=== PATIENT | female | born 1955 | race Caucasian/White ===

== ENCOUNTER 2022-03-03 09:54 | Inpatient (IN) ==
[2022-03-03] MEDS ORDERED: 0.9 % Sodium Chloride 1,000 ML IVC ONE (10:30)
[2022-03-03 11:32] LABS: Hematocrit 35.9 % (35.3-44.9); Hemoglobin 10.6 g/dL (11.5-15.4); Mean Corpuscular HGB Conc 29.5 g/dL (31.6-35.5); Mean Corpuscular Hemoglobin 23.9 pg (28.0-33.3); Mean Platelet Volume 10.3 fL (9.4-12.4); Platelet Count 175 K/mcL (140-400); Red Blood Count 4.43 M/mcL (3.82-4.97); Red Cell Distribution Width 16.4 % (11.5-14.5); White Blood Count 4.5 K/mcL (4.3-11.1)
[2022-03-03 12:03] LABS: Albumin 4.1 g/dL (3.5-5.7); Albumin/Globulin Ratio 1.7 (1.1-2.2); Bilirubin,Direct 0.5 mg/dL (0.0-0.2); Bilirubin,Indirect 3.5 mg/dL (0.0-1.0); Calcium 9.2 mg/dL (8.6-10.3); Globulin 2.4 g/dL (2.4-3.5); Total Protein 6.5 g/dL (6.4-8.9)
[2022-03-03] MEDS ORDERED: 0.9 % Sodium Chloride 500 ML IVC ONE ×2 (12:18→15:16)
[2022-03-03] MEDS ORDERED: Potassium Chloride Elixir 20 MEQ/15 ML UDC PO ONE (12:20)
[2022-03-03] MEDS ORDERED: Ondansetron 4 MG/2 ML VIAL IVP PRN (13:53)
[2022-03-03] MEDS ORDERED: Acetaminophen 325 MG TABLET PO PRN (13:53)
[2022-03-03] MEDS ORDERED: Naloxone 0.4 MG/ML INJ IVP PRN (13:53)
[2022-03-03 15:41] LABS: Bacteria,Urine Many per hpf (None-Few); Bilirubin,Urine Negative (Negative); Blood,Urine Large (Negative); Clarity,Urine Turbid (Clear); Color,Urine Yellow (Yellow); Glucose,Urine (UA) Normal (Normal); Ketones,Urine Negative (Negative); Leukocyte Esterase,Urine Moderate (Negative); Mucus,Urine Many per lpf (None-Few); Nitrite,Urine Negative (Negative); PH,Urine 5.5 pH Units (5.0-8.0); Protein,Urine 50 mg/dL (Neg-Trace); RBC,Urine 30-50 per hpf (0-3); Specific Gravity,Urine 1.021 (1.010-1.025); Squamous Epithelial Cell,Urine Moderate per hpf (None-Few); Urobilinogen,Urine Normal (Normal); WBC,Urine 15-30 per hpf (0-3)
[2022-03-03] MEDS ORDERED: Nitroglycerin 0.4 MG TAB.SUBL SL PRN (16:09)
[2022-03-03] MEDS ORDERED: 0.9 % Sodium Chloride 250 ML IVC ONE (17:59)
[2022-03-03] MEDS: Apixaban 5 MG TABLET PO SCH (19:58)
[2022-03-04 01:17] LABS: Hematocrit 29.7 % (35.3-44.9)
[2022-03-04 01:19] LABS: Hemoglobin 8.5 g/dL (11.5-15.4); Mean Corpuscular HGB Conc 28.6 g/dL (31.6-35.5); Mean Corpuscular Hemoglobin 23.7 pg (28.0-33.3); Platelet Count 141 K/mcL (140-400); Red Blood Count 3.58 M/mcL (3.82-4.97); Red Cell Distribution Width 16.5 % (11.5-14.5); White Blood Count 3.7 K/mcL (4.3-11.1)
[2022-03-04 01:40] LABS: Calcium 8.1 mg/dL (8.6-10.3); Magnesium 1.9 mg/dL (1.6-2.6); Potassium 3.2 mEq/L (3.5-5.1)
[2022-03-04] MEDS ORDERED: *HR* Enoxaparin 30 MG/0.3 ML SYRINGE SQ SCH (07:00)
[2022-03-04] MEDS: 0.9 % Sodium Chloride 1,000 ML IVC SCH ×2 (07:43→18:13)
[2022-03-04] MEDS: Apixaban 5 MG TABLET PO SCH ×2 (07:44→20:57)
[2022-03-04 08:52] LABS: Albumin 3.4 g/dL (3.5-5.7); Bilirubin,Direct 0.4 mg/dL (0.0-0.2); Bilirubin,Indirect 2.5 mg/dL (0.0-1.0); Bilirubin,Total 2.9 mg/dL (0.3-1.0); Globulin 1.7 g/dL (2.4-3.5); Total Protein 5.1 g/dL (6.4-8.9)
[2022-03-04] MEDS: *HR* Amiodarone 200 MG TABLET PO SCH (10:35)
[2022-03-04] MEDS: Metoclopramide 10 MG/2 ML VIAL IVP PRN ×2 (10:35→18:20)
[2022-03-05 03:40] LABS: Mean Platelet Volume 10.9 fL (9.4-12.4); Red Cell Distribution Width 16.7 % (11.5-14.5)
[2022-03-05 03:42] LABS: Basophils % 0.7 %; Eosinophils # 0.1 K/mcL (0.0-0.6); Eosinophils % 3.1 %; Hematocrit 30.4 % (35.3-44.9); Hemoglobin 8.6 g/dL (11.5-15.4); Immature Granulocytes % 0.3 % (0-4); Lymphocytes # 1.1 K/mcL (0.6-4.6); Lymphocytes % 36.7 %; Mean Corpuscular HGB Conc 28.3 g/dL (31.6-35.5); Mean Corpuscular Hemoglobin 23.9 pg (28.0-33.3); Mean Corpuscular Volume 84.4 fL (83.0-100.0); Monocytes # 0.3 K/mcL (0.0-1.3); Monocytes % 8.5 %; Neutrophils # 1.5 K/mcL (1.6-8.9); Platelet Count 130 K/mcL (140-400); Segmented Neutrophils % 50.7 %; White Blood Count 2.9 K/mcL (4.3-11.1)
[2022-03-05 04:14] LABS: Calcium 8.4 mg/dL (8.6-10.3); Magnesium 1.9 mg/dL (1.6-2.6); Phosphorous 2.8 mg/dL (2.7-4.5); Potassium 4.1 mEq/L (3.5-5.1)
[2022-03-05] MEDS: 0.9 % Sodium Chloride 1,000 ML IVC SCH (04:35)
[2022-03-05] MEDS ORDERED: GI Cocktail 40 ML EACH PO ONE (09:19)
[2022-03-05] MEDS: Metoclopramide 10 MG/2 ML VIAL IVP PRN ×2 (10:13→20:01)
[2022-03-05] MEDS: Apixaban 5 MG TABLET PO SCH ×2 (11:05→20:02)
[2022-03-05] MEDS: *HR* Amiodarone 200 MG TABLET PO SCH (11:05)
[2022-03-06 02:18] LABS: Basophils % 0.3 %
[2022-03-06 02:19] LABS: Eosinophils # 0.1 K/mcL (0.0-0.6); Eosinophils % 1.5 %; Hematocrit 28.6 % (35.3-44.9); Hemoglobin 8.3 g/dL (11.5-15.4); Immature Granulocytes % 0.6 % (0-4); Lymphocytes % 30.1 %; Mean Corpuscular Hemoglobin 24.1 pg (28.0-33.3); Mean Corpuscular Volume 83.1 fL (83.0-100.0); Mean Platelet Volume 11.2 fL (9.4-12.4); Monocytes # 0.3 K/mcL (0.0-1.3); Platelet Count 124 K/mcL (140-400); Red Blood Count 3.44 M/mcL (3.82-4.97); Segmented Neutrophils % 59.5 %; White Blood Count 3.3 K/mcL (4.3-11.1)
[2022-03-06 02:43] LABS: Calcium 8.7 mg/dL (8.6-10.3); Magnesium 1.8 mg/dL (1.6-2.6)
[2022-03-06 02:53] LABS: Albumin 3.6 g/dL (3.5-5.7); Albumin/Globulin Ratio 1.8 (1.1-2.2); Bilirubin,Direct 0.4 mg/dL (0.0-0.2); Bilirubin,Indirect 2.3 mg/dL (0.0-1.0); Bilirubin,Total 2.7 mg/dL (0.3-1.0); Total Protein 5.6 g/dL (6.4-8.9)
[2022-03-06 03:05] LABS: Folate 9.4 ng/mL (3.0-16.0)
[2022-03-06 05:46] VITALS: TEMP 98.2
[2022-03-06 07:19] VITALS: BP 118/89; PULSE 130; O2SAT 94
[2022-03-06] MEDS: *HR* Amiodarone 200 MG TABLET PO SCH (09:18)
[2022-03-06] MEDS: Apixaban 5 MG TABLET PO SCH (09:18)
[2022-03-06] MEDS ORDERED: Iron Sucrose Complex 250 MG in 0.9 % Sodium Chloride 250 ML IVPB ONE (11:15)
== END 2022-03-06 14:34 | disposition home or self-care (01) | DRG 871 ==
LOC: EMEROOARM 09:54 → 2ANU 09:54 → SUATTDRO 13:40 → 2ANU 14:28
PROVIDERS: ADMIT Internal Medicine; ATTEND Pharmacist